=== PATIENT | male | born 1975 | race Caucasian/White ===

== ENCOUNTER 2018-08-04 00:40 | Emergency (ER) | payer BC ==
--- NOTE | ~2018-08-04 | EKG ---
[place], [place] ELECTROCARDIOGRAM REPORT NAME: SANDRINE ABRAHAM UNIT #: [id number] ROOM: DOCTOR: EPIPHANY DRAFT REPORT BIRTHDATE: [birth year] [facility] Test Date: 2018-08-04 Test Time: 00:51:01 Pat Name: SANDRINE ABRAHAM Department: Room: Gender: Ruffling Hemmer Automatic: : 1975 Requested By: FABI GUAMAN Order Number: [id number] Reading MD: Joss Kiran MD Measurements Intervals [place] Rate: 123 P: 48 PA: 157 QRS: 11 QRSD: 87 T: 23 QT: 328 QTc: 470 Interpretive Statements Sinus tachycardia Low voltage, precordial leads Compared to ECG 02/26/2018 23:33:53 Sinus rhythm no longer present ST (T wave) deviation no longer present Electronically Signed On 08-05-2018 4:44:11 PST by Joss Kiran MD CM:EKGRPT:ELECTROCARDIOGRAM REPORT [id number] FABI GUAMAN MD EPIPHANY DRAFT REPORT FABI GUAMAN MD
[~2018-08-04 00:40] MED LIST: ANTIVERT25 MG PO; NEXIUM40 MG PO; ZANTAC150 MG PO; ZITHROMAX Z PA250 MG PO
[2018-08-04 01:09] LABS: BASO # 0.1 10*3/uL (0.0-0.1); EOS # 0.2 10*3/uL (0.0-0.4); EOS % 1.1 % (1.0-4.0); HEMATOCRIT 48.2 % (42.0-52.0); HEMOGLOBIN 16.3 g/dl (14.0-18.0); LYMPH # 2.8 10*3/uL (1.3-4.4); LYMPH % 19.5 % (27.0-41.0); MEAN CELL VOLUME 82.7 fl (80.0-94.0); MEAN CORPUSCULAR HGB CONC 33.8 g/dl (33.0-37.0); MEAN PLATELET VOLUME 11.2 fl (9.6-12.3); MONO # 1.2 10*3/uL (0.1-1.0); MONO % 8.3 % (3.0-9.0); NEUT # 9.9 10*3/uL (2.3-7.9); NEUT % 69.8 % (47.0-73.0); PLATELET COUNT AUTOMATED 289 10*3/uL (130-400); RED BLOOD COUNT 5.83 10*6/uL (4.50-5.90); RED CELL DISTRI WIDTH 12.8 % (0-14.5); WHITE BLOOD COUNT 14.2 10*3/uL (4.8-10.8)
[2018-08-04 01:20] LABS: ACT PARTIAL THROMBO TIME 24.2 SECONDS (20.8-31.5)
[2018-08-04 01:32] LABS: ALBUMIN 3.7 gm/dl (3.1-4.5); ALKALINE PHOSPHATASE 73 U/L (45-117); BUN 14 mg/dl (7-24); CHLORIDE 109 mmol/L (98-107); CREATININE 1.06 mg/dL (0.70-1.30); POTASSIUM 3.8 mmol/L (3.5-5.1); SGOT/AST 17 IU/L (3-35); SGPT/ALT 34 U/L (12-78); SODIUM 143 mmol/L (136-145); TOTAL PROTEIN 7.8 gm/dL (6.4-8.2)
[2018-08-04 01:33] LABS: TROPONIN I < 0.015 ng/ml (<0.045)
[2018-08-04] MEDS ORDERED: Lopressor25 MG PO (03:22)
== END 2018-08-04 03:35 | disposition home or self-care (01) ==
LOC: ED 00:40
PROVIDERS: Emergency Medicine Emergency Medical Services
DX: R00.2 Palpitations (principal); R79.1 Abnormal coagulation profile; E78.5 Hyperlipidemia, unspecified; E66.9 Obesity, unspecified; E11.9 Type 2 diabetes mellitus without complications; R00.0 Tachycardia, unspecified; K21.9 Gastro-esophageal reflux disease without esophagitis

== ENCOUNTER → 2022-04-01 | Outpatient (CLI) | payer SELFPAY ==
[~2022-04-01] MED LIST changes: +Lopressor25 MG PO
== END | disposition home or self-care (01) ==
LOC: ORTHO 01:06
PROVIDERS: ATTEND Orthopaedic Surgery
DX: M19.012 Primary osteoarthritis, left shoulder (principal); M19.011 Primary osteoarthritis, right shoulder